=== PATIENT | female | born 1970 | race Two or more races ===

== ENCOUNTER 2022-11-08 17:47 | Emergency (ER) | payer MEDICAID ==
[~2022-11-08] VITALS: Ht 154.9 cm; Wt 100.1 kg
[~2022-11-08 17:47] MED LIST: ASPI-449 OR; LISI2.5T47 PO; METF-372 PO; SIMV10TA84 PO
[2022-11-08 20:01] LABS: Basophils # (auto) 0 10 ^3/uL (0-0.2); Basophils % (auto) 0.4 % (0.0-2.0); Eosinophils # (auto) 0.1 10 ^3/uL (0-0.8); Eosinophils % (auto) 1.1 % (0.0-7.0); Hematocrit 44.4 % (36.0-46.0); Hemoglobin 15.1 g/dL (12.2-16.2); Lymphocytes # (auto) 2.2 10 ^3/uL (0.4-5.4); Lymphocytes % (auto) 30.1 % (10.0-50.0); Mean Corpuscular Hemoglobin 31.7 pg (28.0-32.0); Mean Corpuscular Hgb Conc. 34.1 g/dL (32.0-36.0); Mean Corpuscular Volume 92.9 fL (80.0-100.0); Monocytes # (auto) 0.4 10 ^3/uL (0-1.3); Monocytes % (auto) 5.4 % (0.0-12.0); Neutrophils # (auto) 4.6 10 ^3/uL (1.6-8.6); Nucleated Red Blood Cells % 0.1 %; Red Blood Cells 4.78 10^6/uL (4.0-5.20); Red Cell Distribution Width 12.4 % (11.8-14.3); White Blood Cell 7.3 10^3/uL (4.4-10.8)
[2022-11-08 20:14] LABS: Potassium 3.8 mmol/L (3.5-5.1)
[2022-11-08 20:20] LABS: Albumin 3.8 g/dL (3.4-5.0); BUN/Creatinine Ratio 33.8; Calcium 9.3 mg/dL (8.5-10.1)
[2022-11-08 20:22] LABS: Bilirubin, Total 0.3 mg/dL (0.2-1.0); Total Protein 8.2 g/dL (6.4-8.2)
[2022-11-08 23:23] VITALS: BP 132/75
== END 2022-11-08 23:25 | disposition home or self-care (01) ==
LOC: ER 17:47
DX: R73.9 Hyperglycemia, unspecified (principal); Z79.82 Long term (current) use of aspirin; Z79.899 Other long term (current) drug therapy
CPT/HCPCS: 36415; 80053; 84484; 85025

== ENCOUNTER → 2022-11-09 | Day surgery (SDC) | payer MEDICAID ==
[2022-11-08 13:19] LABS: Basophils # (auto) 0 10 ^3/uL (0-0.2); Basophils % (auto) 0.5 % (0.0-2.0); Eosinophils # (auto) 0.1 10 ^3/uL (0-0.8); Eosinophils % (auto) 1.5 % (0.0-7.0); Hematocrit 44.9 % (36.0-46.0); Hemoglobin 15.2 g/dL (12.2-16.2); Lymphocytes # (auto) 2.1 10 ^3/uL (0.4-5.4); Lymphocytes % (auto) 30.5 % (10.0-50.0); Mean Corpuscular Hemoglobin 31.3 pg (28.0-32.0); Mean Corpuscular Hgb Conc. 33.9 g/dL (32.0-36.0); Mean Corpuscular Volume 92.6 fL (80.0-100.0); Monocytes # (auto) 0.4 10 ^3/uL (0-1.3); Monocytes % (auto) 6.3 % (0.0-12.0); Neutrophils # (auto) 4.2 10 ^3/uL (1.6-8.6); Neutrophils % (auto) 61.2 % (37.0-80.0); Nucleated Red Blood Cells % 0.1 %; Red Blood Cells 4.85 10^6/uL (4.0-5.20); Red Cell Distribution Width 12.5 % (11.8-14.3); White Blood Cell 6.9 10^3/uL (4.4-10.8)
[2022-11-08 13:27] LABS: Urine Bacteria NONE SEEN /hpf (None Seen); Urine Blood Negative /uL (Negative); Urine Budding Yeast OCCASIONAL /hpf (None Seen); Urine Specific Gravity 1.038 (1.001-1.035); Urine WBC <1 /hpf (0 - 5)
[2022-11-08 13:34] LABS: INR 1.04 (0.9-1.15); Partial Thromboplastin Time 28.5 sec (24.6-33.4)
[2022-11-08 19:12] LABS: Chloride 106 mmol/L (98-107); Sodium 139 mmol/L (136-145)
[2022-11-08 19:14] LABS: Anion Gap 8 (5-15); BUN/Creatinine Ratio 37.5; Blood Urea Nitrogen 24 mg/dL (7-18); Carbon Dioxide 25 mmol/L (21-32); GFR African American 124 mL/min; GFR Non-African American 103 mL/min; Glucose 175 mg/dL (74-106)
[2022-11-08 19:15] LABS: Alanine Aminotransferase 44 U/L (13-56); Albumin 3.9 g/dL (3.4-5.0); Alkaline Phosphatase 99 U/L (45-117); Aspartate Aminotransferase 24 U/L (15-37); Bilirubin, Total 0.4 mg/dL (0.2-1.0)
[~2022-11-09] VITALS: Ht 154.9 cm; Wt 100.7 kg
[~2022-11-09] MED LIST changes: +CONJ ESTROGENS 0.625MG/GM VAG CRM 30GM PV ONE; +DexAMETHasone SOD PHOS 10MG/1ML VIAL INJ ONE; +GLYCOPYRROLATE 0.2 MG/ML 1ML VIAL ONE; +KETOROLAC TROMETH 30 MG/ML 1ML VIAL ONE; +LIDOCAINE W/ EPINEPHRINE 1% 20ML VIAL ONE; +ONDANSETRON HCL 4 MG/2 ML VIAL ONE; +PROPOFOL 10 MG/ML 20 ML IV ONE; +ceFAZolin 1GM VL ONE; +ceFAZolin 1GM/50ML 100 ML IV ONE; +fentaNYL CITRATE 100 MCG/2 ML VL ONE
[2022-11-09 14:05] VITALS: BP 117/64
== END | disposition home or self-care (01) ==
LOC: SUR 09:27
PROVIDERS: ATTEND Urology
DX: N39.3 Stress incontinence (female) (male) (principal); I10 Essential (primary) hypertension; E11.9 Type 2 diabetes mellitus without complications; Z79.82 Long term (current) use of aspirin; Z79.84 Long term (current) use of oral hypoglycemic drugs; Z98.891 History of uterine scar from previous surgery; Z98.890 Other specified postprocedural states; Z79.899 Other long term (current) drug therapy; Z20.822 Contact with and (suspected) exposure to COVID-19; E66.01 Morbid (severe) obesity due to excess calories; E78.5 Hyperlipidemia, unspecified
CPT/HCPCS: 36415; 57288; 80053; 81001; 82962; 85025; 85610; 85730; 87086; J0690; J1100; J1885; J2405; J2704; J3010; U0003

== ENCOUNTER → 2023-05-02 | Day surgery (SDC) | payer MEDICAID ==
[2023-04-30 08:59] LABS: Basophils # (auto) 0.1 10 ^3/uL (0-0.2); Basophils % (auto) 0.8 % (0.0-2.0); Eosinophils # (auto) 0.1 10 ^3/uL (0-0.8); Eosinophils % (auto) 1.9 % (0.0-7.0); Hematocrit 45.7 % (36.0-46.0); Hemoglobin 15.7 g/dL (12.2-16.2); Lymphocytes # (auto) 2.2 10 ^3/uL (0.4-5.4); Lymphocytes % (auto) 31.5 % (10.0-50.0); Mean Corpuscular Hemoglobin 31.4 pg (28.0-32.0); Mean Corpuscular Hgb Conc. 34.4 g/dL (32.0-36.0); Mean Corpuscular Volume 91.3 fL (80.0-100.0); Monocytes # (auto) 0.4 10 ^3/uL (0-1.3); Monocytes % (auto) 6.2 % (0.0-12.0); Neutrophils # (auto) 4.1 10 ^3/uL (1.6-8.6); Neutrophils % (auto) 59.6 % (37.0-80.0); Nucleated Red Blood Cells % 0.1 %; Red Blood Cells 5.01 10^6/uL (4.0-5.20); Red Cell Distribution Width 13.8 % (11.8-14.3); White Blood Cell 6.9 10^3/uL (4.4-10.8)
[2023-04-30 09:22] LABS: Calcium 9.2 mg/dL (8.5-10.1); Potassium 4.4 mmol/L (3.5-5.1)
[2023-04-30 09:27] LABS: Albumin 3.9 g/dL (3.4-5.0); BUN/Creatinine Ratio 32.7 (10.0-20.0); Bilirubin, Total 0.6 mg/dL (0.2-1.0); INR 1.04 (0.9-1.15); Partial Thromboplastin Time 30.6 SEC (24.5-34.5); Total Protein 8.2 g/dL (6.4-8.2)
[~2023-05-02] VITALS: Ht 154.9 cm; Wt 100.7 kg
[~2023-05-02] MED LIST changes: -CONJ ESTROGENS 0.625MG/GM VAG CRM 30GM PV ONE; -DexAMETHasone SOD PHOS 10MG/1ML VIAL INJ ONE; +FLUMAZENIL 0.1 MG/ML INJ 10ML MDV IV ONE; -GLYCOPYRROLATE 0.2 MG/ML 1ML VIAL ONE; -KETOROLAC TROMETH 30 MG/ML 1ML VIAL ONE; +LIDOCAINE VISCOUS 2% 15ML UD ONE; -LIDOCAINE W/ EPINEPHRINE 1% 20ML VIAL ONE; +NALOXONE HCL 0.4 MG/ML VIAL ONE; -ONDANSETRON HCL 4 MG/2 ML VIAL ONE; -PROPOFOL 10 MG/ML 20 ML IV ONE; +SIMV10TA20 PO; -SIMV10TA84 PO; -ceFAZolin 1GM VL ONE; -ceFAZolin 1GM/50ML 100 ML IV ONE; -fentaNYL CITRATE 100 MCG/2 ML VL ONE
[2023-05-02] MEDS: fentaNYL CITRATE 100 MCG/2 ML VL ONE ×2 (14:00→14:03)
[2023-05-02] MEDS: diphenhdrAMINE HCL 50 MG/1 ML VL ONE ×2 (14:00→14:01)
[2023-05-02] MEDS: MIDAZOLAM HCL 2MG/2ML 2ml VIAL (1mg/ml) ONE ×2 (14:00→14:04)
[2023-05-02 14:11] VITALS: TEMP 98.2; O2SAT 98
[2023-05-02 14:41] VITALS: BP 109/69; PULSE 78; RESP 15; O2SAT 96
== END | disposition home or self-care (01) ==
LOC: GI 10:56
PROVIDERS: ATTEND Internal Medicine Gastroenterology
DX: K21.9 Gastro-esophageal reflux disease without esophagitis (principal); K29.50 Unspecified chronic gastritis without bleeding; K31.89 Other diseases of stomach and duodenum; K44.9 Diaphragmatic hernia without obstruction or gangrene; I10 Essential (primary) hypertension; E78.5 Hyperlipidemia, unspecified; E11.9 Type 2 diabetes mellitus without complications; Z79.84 Long term (current) use of oral hypoglycemic drugs; Z79.82 Long term (current) use of aspirin; Z79.899 Other long term (current) drug therapy; Z98.891 History of uterine scar from previous surgery; Z98.890 Other specified postprocedural states
CPT/HCPCS: 36415; 43239; 80053; 82962; 85025; 85610; 85730; 88305; 88342; J1200; J2250; J3010; J7030

== ENCOUNTER → 2024-03-28 | Day surgery (SDC) | payer MEDICAID ==
[2024-03-26 11:34] LABS: Basophils # (auto) 0.1 10 ^3/uL (0-0.2); Basophils % (auto) 0.5 % (0.0-2.0); Eosinophils # (auto) 0.1 10 ^3/uL (0-0.8); Eosinophils % (auto) 0.9 % (0.0-7.0); Hematocrit 47.8 % (36.0-46.0); Lymphocytes # (auto) 3.2 10 ^3/uL (0.4-5.4); Lymphocytes % (auto) 30.9 % (10.0-50.0); Mean Corpuscular Hemoglobin 32.6 pg (28.0-32.0); Mean Corpuscular Hgb Conc. 35.5 g/dL (32.0-36.0); Mean Corpuscular Volume 91.8 fL (80.0-100.0); Monocytes # (auto) 0.7 10 ^3/uL (0-1.3); Monocytes % (auto) 6.3 % (0.0-12.0); Neutrophils # (auto) 6.4 10 ^3/uL (1.6-8.6); Neutrophils % (auto) 61.4 % (37.0-80.0); Red Blood Cells 5.21 10^6/uL (4.0-5.20); Red Cell Distribution Width 13.5 % (11.8-14.3); White Blood Cell 10.5 10^3/uL (4.4-10.8)
[2024-03-26 11:45] LABS: Partial Thromboplastin Time 27.1 SEC (24.5-34.5); Prothrombin Time 10.6 sec (9.3-11.8)
[2024-03-26 12:40] LABS: Alanine Aminotransferase 26 U/L (7-40); Albumin 4.6 g/dL (3.2-4.8); Alkaline Phosphatase 148 U/L (46-116); Anion Gap 2 (5-15); Aspartate Aminotransferase 16 U/L (13-40); BUN/Creatinine Ratio 29.5 (10.0-20.0); Blood Urea Nitrogen 18 mg/dL (9-23); Calcium 9.9 mg/dL (8.5-10.1); Carbon Dioxide 30 mmol/L (20-30); Chloride 104 mmol/L (98-107); Glucose 105 mg/dL (74-106); Potassium 4.7 mmol/L (3.5-5.1); Sodium 136 mmol/L (136-145); Total Protein 8.1 g/dL (5.7-8.2)
[2024-03-26 12:41] LABS: Bilirubin, Total 0.7 mg/dL (0.2-1.0)
[~2024-03-28] VITALS: Ht 61 cm; Wt 97.5 kg
[~2024-03-28] MED LIST changes: -FLUMAZENIL 0.1 MG/ML INJ 10ML MDV IV ONE; -LIDOCAINE VISCOUS 2% 15ML UD ONE; -NALOXONE HCL 0.4 MG/ML VIAL ONE; -SIMV10TA20 PO; +SODIUM CHLORIDE LOCK 10 ML ONE
[2024-03-28] MEDS: fentaNYL CITRATE 100 MCG/2 ML VL ONE (12:51)
[2024-03-28] MEDS: MIDAZOLAM HCL 5 MG/ML-1ML VIAL ONE (12:51)
[2024-03-28] MEDS: diphenhdrAMINE HCL 50 MG/1 ML VL ONE (12:51)
[2024-03-28 13:12] VITALS: PULSE 75; RESP 21; TEMP 98.2; O2SAT 94
[2024-03-28 13:42] VITALS: BP 119/67; PULSE 74; RESP 18; O2SAT 95
== END | disposition home or self-care (01) ==
LOC: GI 11:03
PROVIDERS: ATTEND Internal Medicine Gastroenterology
DX: Z12.11 Encounter for screening for malignant neoplasm of colon (principal); D12.7 Benign neoplasm of rectosigmoid junction; K64.8 Other hemorrhoids; E11.9 Type 2 diabetes mellitus without complications; Z79.82 Long term (current) use of aspirin; Z98.891 History of uterine scar from previous surgery; Z79.899 Other long term (current) drug therapy; Z98.890 Other specified postprocedural states; Z79.84 Long term (current) use of oral hypoglycemic drugs
CPT/HCPCS: 36415; 45380; 80053; 82962; 84702; 85025; 85610; 85730; 88305; J1200; J2250; J3010; J7030; 99152

== ENCOUNTER → 2024-10-02 | Outpatient (CLI) | payer MEDICAID ==
[~2024-10-02] MED LIST changes: -SODIUM CHLORIDE LOCK 10 ML ONE
[2024-10-02 13:11] LABS: Urine Bacteria FEW /hpf (None Seen); Urine Blood Negative /uL (Negative); Urine Budding Yeast OCCASIONAL /hpf (None Seen); Urine Clarity Clear (Clear); Urine Color Light-Yellow (Yellow); Urine Protein, UAD Negative (Negative); Urine Specific Gravity 1.022 (1.001-1.035); Urine Urobilinogen Normal (Negative); Urine WBC 10 /hpf (0 - 5); Urine WBC Clumps PRESENT /hpf (None Seen)
== END | disposition home or self-care (01) ==
LOC: LAB 12:30
PROVIDERS: ATTEND Urology
DX: N39.9 Disorder of urinary system, unspecified (principal); Z79.899 Other long term (current) drug therapy
CPT/HCPCS: 81001; 87086; 87088; 87186

== ENCOUNTER → 2025-02-03 | Outpatient (CLI) | payer MEDICAID ==
[2025-02-03 10:25] LABS: Basophils # (auto) 0 10 ^3/uL (0-0.2); Basophils % (auto) 0.6 % (0.0-2.0); Eosinophils # (auto) 0.1 10 ^3/uL (0-0.8); Eosinophils % (auto) 1.8 % (0.0-7.0); Hematocrit 48.8 % (36.0-46.0); Hemoglobin 17.1 g/dL (12.2-16.2); Lymphocytes # (auto) 2.1 10 ^3/uL (0.4-5.4); Mean Corpuscular Hemoglobin 31.7 pg (28.0-32.0); Mean Corpuscular Volume 90.5 fL (80.0-100.0); Monocytes # (auto) 0.4 10 ^3/uL (0-1.3); Monocytes % (auto) 6.7 % (0.0-12.0); Neutrophils # (auto) 3.7 10 ^3/uL (1.6-8.6); Neutrophils % (auto) 57.9 % (37.0-80.0); Platelet Count (auto) 195 10^3/uL (140-450); Red Blood Cells 5.39 10^6/uL (4.0-5.20); White Blood Cell 6.5 10^3/uL (4.4-10.8)
[2025-02-03 10:48] LABS: Alanine Aminotransferase 36 U/L (7-40); Albumin 4.8 g/dL (3.2-4.8); Anion Gap 8 (5-15); Aspartate Aminotransferase 18 U/L (13-40); BUN/Creatinine Ratio 18.3 (10.0-20.0); Bilirubin, Total 0.9 mg/dL (0.2-1.0); Blood Urea Nitrogen 13 mg/dL (9-23); Calcium 10.3 mg/dL (8.7-10.4); Carbon Dioxide 27 mmol/L (20-31); Potassium 3.8 mmol/L (3.5-5.1)
[2025-02-03 10:53] LABS: Alkaline Phosphatase 181 U/L (46-116); Chloride 98 mmol/L (98-107); Glucose 294 mg/dL (74-106); Sodium 133 mmol/L (136-145); Total Protein 8.6 g/dL (5.7-8.2)
[2025-02-04 09:07] LABS: Anti-Nuclear Antibody Direct Positive (Negative)
== END | disposition home or self-care (01) ==
LOC: LAB 09:34
PROVIDERS: ATTEND Internal Medicine Gastroenterology
DX: K76.0 Fatty (change of) liver, not elsewhere classified (principal); R74.8 Abnormal levels of other serum enzymes
CPT/HCPCS: 36415; 80053; 85025; 86038

== ENCOUNTER → 2025-02-24 | Outpatient (CLI) | payer MEDICAID | END | disposition home or self-care (01) | LOC: LAB 09:20 | PROVIDERS: ATTEND Internal Medicine Gastroenterology | DX: K63.5 Polyp of colon (principal); A04.8 Other specified bacterial intestinal infections; K80.20 Calculus of gallbladder without cholecystitis without obstruction; K76.0 Fatty (change of) liver, not elsewhere classified; R13.10 Dysphagia, unspecified; B96.81 Helicobacter pylori [H. pylori] as the cause of diseases classified elsewhere | CPT/HCPCS: 83013 ==